=== PATIENT | female | born 1990 | race Two or more races ===

== ENCOUNTER 2022-05-19 03:21 | Emergency (ER) | payer OTHER ==
[~2022-05-19] VITALS: Ht 160 cm; Wt 59.0 kg
[2022-05-19] MEDS ORDERED: WELLBUTRIN SR100 MG PO (03:35)
[2022-05-19] MEDS ORDERED: LEXAPRO5 MG (03:35)
[2022-05-19] MEDS ORDERED: CLONAZEPAM1 MG PO (03:36)
[2022-05-19] MEDS ORDERED: AMBIEN10 MG PO (03:36)
== END 2022-05-19 07:42 | disposition left against medical advice (07) ==
LOC: ER 03:21
DX: M79.604 Pain in right leg (principal)